=== PATIENT | male | born 1960 | race African-American/Black ===

== ENCOUNTER 2017-05-23 12:56 | Inpatient (IN) | payer SELFPAY ==
[2017-05-23 13:58] LABS: Hemoglobin 16.4 g/dL (14.0-18.0); Mean Corpuscular HGB CONC 32.5 g/dL (32.0-36.0); Mean Corpuscular Hemoglobin 30.8 pg (27.0-31.0); Mean Corpuscular Volume 94.9 fl (80.0-94.0); Mean Platelet Volume 8.3 fL (7.4-10.4); Platelet Count 72 thou/uL (130-400); Red Blood Cell (RBC) Count 5.34 mill/uL (4.70-6.10)
[2017-05-23 14:10] LABS: Band 14 % (5-11); Lymphocytes 19 % (21-51); MDiff Complete? YES; Monocytes 10 % (0-10); Neutrophil 47 % (42-75); PLT Morphology Comment Appears Decreased; Reactive Lymphocytes 10 % (0-10); Target Cells SLIGHT = 2-5 cells (100X) (0-1/hpf)
--- NOTE | 2017-05-23 14:12 | RAD ---
PORTABLE CHEST: Date: 05-23-17 History: Cough, congestion, abdominal pain. Symptoms have been present for four days. Comparison: 12-05-14 FINDINGS: Cardiac silhouette and pulmonary vasculature are within normal limits. There is interstitial and patc hy airspace opacity at the left lung base worrisome for pneumonitis/pneumonia. Right lung is clear. T here has been no other interval change from the prior exam. IMPRESSION: Airspace opacity at the left lung base which may be related to pneumonitis/pneumonia. Follow up to re solution is recommended. POS: [facility]
[2017-05-23] MEDS ORDERED: Acetaminophen 500 MG TAB ONE (14:14)
[2017-05-23] MEDS ORDERED: Ondansetron PF 4 MG/2 ML Vial ONE (14:14)
[2017-05-23 14:16] LABS: ALT (SGPT) 105 U/L (8-55); AST (SGOT) 52 U/L (5-34); Alkaline Phosphatase 95 U/L (40-150); Anion Gap 12 mmol/L (10-20); BUN (Urea Nitrogen) 11 mg/dL (8.4-25.7); Bilirubin, Total 0.3 mg/dL (0.2-1.2); Calc. Creatinine Clearance 0 mL/min (70-130); Calcium 9.5 mg/dL (7.8-10.44); Carbon Dioxide 24 mmol/L (22-29); Chloride 97 mmol/L (98-107); Estimated GFR-MDRD Greater than 90; Globulin 3.9 g/dL (2.4-3.5); Glucose 125 mg/dL (70-105); Potassium 3.7 mmol/L (3.5-5.1); Protein, Total 7.9 g/dL (6.0-8.3); Sodium 129 mmol/L (136-145)
[2017-05-23 15:05] LABS: Bilirubin Negative (Negative); Blood, Urine Negative (Negative); Clarity CLEAR (Clear); Glucose, Urine (Dipstick) Negative (Negative); Leukocyte Negative (Negative); Nitrite Negative (Negative); Protein, Urine (Dipstick) 30 mg/dL (Neg-Trace); Specific Gravity, Urine 1.034 (1.002-1.036); Urobilinogen 0.2 mg/dL (0.2-1.0); pH, Urine 5.5 (5.0-9.0)
[2017-05-23 15:06] LABS: Bacteria/HPF None Seen HPF (None Seen); Pathc Cast-AUWi Flag 0.94 (0-2.49); RBC/HPF 0-3 HPF (0-3); Squamous Epithelial 0-3 HPF (0-3); WBC/HPF 0-3 HPF (0-3)
[2017-05-23 15:15] LABS: Hyaline Casts/LPF 0-3 HYALINE CAST LPF (0-3 Hyaline); Renal Epithelial None Seen HPF (0-3); Transitional Epithelial NONE SEEN HPF (0-3)
[2017-05-23 15:34] LABS: Vacuoles SLIGHT
[2017-05-23] MEDS ORDERED: Oseltamivir 75 MG CAP PO SCH (15:45)
[2017-05-23 16:10] LABS: HIV (1/2) Antibody/Antigen Non-Reactive (NonReactive); HIV 1/2 INDEX 0.28 S/CO (<1.00)
[2017-05-23] MEDS ORDERED: Cefepime 2 GM/10 ML SYR ONE (16:30)
[2017-05-23] MEDS ORDERED: Ibuprofen 200 MG TAB PO PRN (17:40)
[2017-05-23] MEDS ORDERED: traMADol HCl 50 MG TAB PO PRN (17:40)
[2017-05-23] MEDS ORDERED: Ondansetron PF 4 MG/2 ML Vial IVP PRN (17:40)
[2017-05-23] MEDS ORDERED: Ondansetron ODT 4 MG TAB PO PRN (17:40)
[2017-05-23] MEDS ORDERED: Cepastat Lozenges 1 LOZ PO PRN (17:40)
[2017-05-23] MEDS ORDERED: Senokot 8.6 MG TAB PO PRN (17:40)
[2017-05-23] MEDS ORDERED: Mag-Al 1200 mg/1200 mg/30 ML UDCUP PO PRN (17:40)
[2017-05-23 17:47] VITALS: BMI 20.8
[2017-05-23] MEDS ORDERED: Levofloxacin 500 mg/D5W 750 MG in Premix Bag 1 BAG IVPB SCH (18:00)
--- NOTE | 2017-05-23 18:03 | HP ---
DATE OF ADMISSION: 05/23/2017 PRIMARY CARE PHYSICIAN: [facility]. CHIEF COMPLAINT: Flu-like symptoms of 3 days' duration. HISTORY OF PRESENT ILLNESS: The patient is a 57-year-old male with chronic hepatiti s B, presented to the emergency room with above complaints. Over the past 3-4 days, the patient developed gradual worsening fever along with generalized malaise and body aches. He was coughing up thick whitish phlegm. His mother was recently diagnosed with inf luenza. He also had nausea along with diarrhea several times a day. He has been taking Tylenol inte rmittently for fever. No recent travel or other sick contacts reported. He denies any chest pain, p alpitations, lightheadedness, syncope, or focal neurologic deficits. In the emergency room, initial vital signs showed temperature 102.6, respiration of 16, pulse rate of 121 with a blood pressure 122/84 with O2 saturation 98% on room air. His chest x-ray was consistent with left lung basilar pneumonia. He received cefepime, vancomycin, and Tamiflu in the emergency ro om. Influenza testing was negative. PAST MEDICAL HISTORY: Chronic hepatitis B. PAST SURGICAL HISTORY: Reviewed with the patient and none. ALLERGIES: PENICILLIN G. CURRENT HOME MEDICATIONS: Reviewed with the patient and none. SOCIAL HISTORY: He is a former smoker. Drinks alcohol every week. He chews tobacco. FAMILY HISTORY: Negative for heart disease or malignancy. REVIEW OF SYSTEMS: The following complete review of systems was negative, unless otherwise mentioned in the HPI or below: Constitutional: Weight loss or gain, ability to conduct usual activities. Skin: Rash, itching. Eyes: Double vision, pain. ENT/Mouth: Nose bleeding, neck stiffness, pain, tenderness. Cardiovascular: Palpitations, dyspnea on exertion, orthopnea. Respiratory: Shortness of breath, wheezing, cough, hemoptysis, fever or night sweats. Gastrointestinal: Poor appetite, abdominal pain, heartburn, nausea, vomiting, constipation, or diarrhea. Genitourinary: Urgency, frequency, dysuria, nocturia. Musculoskeletal: Pain, swelling. Neurologic/Psychiatric: Anxiety, depression. Allergy/Immunologic: Skin rash, bleeding tendency. PHYSICAL EXAMINATION: VITAL SIGNS: As discussed above. GENERAL: A 57-year-old male, ill-appearing. HEENT: Head atraumatic, normocephalic. Sclerae are anicteric. Moist mucous membranes. No oral les ion. NECK: Supple. No JVD appreciated. No carotid bruit. LUNGS: Showed scattered rales at left base with rhonchi. No wheezing appreciated. Trachea was in m idline. HEART: S1, S2 present. Regular, tachycardic. ABDOMEN: Soft, nontender, bowel sounds present. EXTREMITIES: No edema or calf tenderness. NEUROLOGIC: Grossly nonfocal, moves all four extremities. PSYCHIATRY: Alert, awake, oriented x3. SKIN: Warm and dry. LYMPH NODES: No palpable lymph nodes in the neck. PERIPHERAL VASCULAR: Radial pulses palpable bilaterally. MUSCULOSKELETAL: No joint swelling or tenderness. LABORATORY AND X-RAY FINDINGS: WBC 3.0 with 14% bandemia. Sodium was 129 with normal potassium and bicarbonate. AST was 52, ALT 105. Lipase was normal. Urinalysis was negative. HIV testing was neg ative. Chest x-ray by my review as discussed above. Telemetry monitoring by my review showed sinus tachycardia. IMPRESSION: 1. Sepsis due to pneumonia, suspected pneumococcal. Rule out influenza. 2. Hyponatremia, probably secondary to dehydration. 3. Abnormal liver function tests secondary to chronic hepatitis B. 4. Leukopenia, probably secondary to liver disease. 5. Chronic thrombocytopenia, probably secondary to liver disease. PLAN: The patient will be monitored on the medical floor. We will continue empiric antibiotics. We will hold steroids for now. IV fluids. We will monitor labs on a daily basis. Alcohol cessation w as emphasized. He was also advised to quit chewing tobacco. Control fever with ibuprofen and Tyleno l p.r.n. Plan of care was discussed with the patient in detail. He stated understanding. The patient will require 2-3 days for stabilization. We will also get a respiratory viral panel.
[2017-05-23] MEDS: Sodium Chloride 0.9% 1,000 ML IV SCH (18:41)
[2017-05-23] MEDS: Acetaminophen 325 MG TAB PO PRN (18:41)
[2017-05-23] MEDS ORDERED: Cefepime 2 GM in Sodium Chloride 0.9% 100 ML IVPB SCH (21:00)
[2017-05-23] MEDS ORDERED: Doxycycline 100 MG CAP PO SCH (21:00)
[2017-05-23] MEDS: Docusate 100 MG CAP PO SCH (21:25)
[2017-05-23] MEDS: Oseltamivir 75 MG CAP PO SCH (21:28)
[2017-05-23] MEDS: Famotidine 20 MG TAB PO SCH (21:28)
[2017-05-23] MEDS: guaiFENesin ER 600 MG TAB PO SCH (21:28)
[2017-05-24] MEDS: Sodium Chloride 0.9% 1,000 ML IV SCH ×4 (02:07→19:00)
[2017-05-24] MEDS ORDERED: Cefepime 2 GM, Syringe 2.5 ML in Sterile Water 10 ML SLOW IVP SCH (04:00)
[2017-05-24] MEDS: Calcium Carbonate 500 MG ChewTAB PO PRN ×2 (05:28→23:53)
[2017-05-24 05:29] LABS: Hemoglobin 13.7 g/dL (14.0-18.0); MDiff Complete? YES; Mean Corpuscular Hemoglobin 31.8 pg (27.0-31.0); Mean Corpuscular Volume 96.3 fl (80.0-94.0); Mean Platelet Volume 7.9 fL (7.4-10.4); Platelet Count 52 thou/uL (130-400); RBC Distribution Width 12.9 % (11.5-14.5); White Blood Cell (WBC) Count 2.9 thou/uL (4.8-10.8)
[2017-05-24 05:30] LABS: Band 3 % (5-11); Lymphocytes 37 % (21-51); Metamyelocyte 1 % (0-0); Monocytes 18 % (0-10); Neutrophil 41 % (42-75); PLT Morphology Comment Appears Decreased
[2017-05-24 06:02] LABS: ALT (SGPT) 71 U/L (8-55); AST (SGOT) 37 U/L (5-34); Alkaline Phosphatase 70 U/L (40-150); Anion Gap 9 mmol/L (10-20); BUN (Urea Nitrogen) 9 mg/dL (8.4-25.7); Bilirubin, Total 0.3 mg/dL (0.2-1.2); Calc. Creatinine Clearance 111 mL/min (70-130); Calcium 8.1 mg/dL (7.8-10.44); Carbon Dioxide 23 mmol/L (22-29); Chloride 104 mmol/L (98-107); Estimated GFR-MDRD Greater than 90; Globulin 2.7 g/dL (2.4-3.5); Glucose 107 mg/dL (70-105); Magnesium 1.6 mg/dL (1.6-2.6); Phosphorus 2.2 mg/dL (2.3-4.7); Protein, Total 5.7 g/dL (6.0-8.3); Sodium 132 mmol/L (136-145)
[2017-05-24] MEDS: Famotidine 20 MG TAB PO SCH ×2 (08:49→20:54)
[2017-05-24] MEDS: guaiFENesin ER 600 MG TAB PO SCH ×2 (08:49→20:54)
[2017-05-24] MEDS: Oseltamivir 75 MG CAP PO SCH ×2 (08:49→20:55)
[2017-05-24] MEDS: Docusate 100 MG CAP PO SCH ×2 (08:50→20:53)
[2017-05-24] MEDS: K-Phos Neutral 250 MG TAB PO SCH ×4 (08:57→20:54)
[2017-05-24] MEDS ORDERED: Saccharomyces boulardii 250 MG CAP PO SCH (09:00)
[2017-05-24] MEDS ORDERED: Azithromycin 250 MG TAB PO SCH (11:45)
[2017-05-24] MEDS: Acetaminophen 325 MG TAB PO PRN (17:04)
--- NOTE | 2017-05-24 22:19 | PDOC.PN ---
- Subjective Encounter Start Date: 05/24/17 Encounter Start Time: 14:00 Patient seen and examined. No new complaints. No overnight events - Objective Resuscitation Status: Resuscitation Status FULL:Full Resuscitation MAR Reviewed: Yes Vital Signs & Weight: Vital Signs (12 hours) Temp Pulse Resp BP Pulse Ox 05/24/17 20:48 99.7 F H 89 18 96 05/24/17 20:00 99.7 F H 89 18 122/60 96 05/24/17 19:16 85 12 95 05/24/17 16:00 101.3 F H 89 20 115/63 97 05/24/17 15:21 102 H 16 95 05/24/17 12:00 99.0 F 101 H 20 137/82 96 05/24/17 10:26 95 14 95 Weight Admit Weight 157 lb 12.8 oz Weight 157 lb 12.8 oz I&O: 05/23/17 05/24/17 05/25/17 06:59 06:59 06:59 Intake Total 2039 1725 Balance 2039 1725 Result Diagrams: 05/24/17 04:31 05/24/17 04:31 Phys Exam - Physical Examination Constitutional: NAD Respiratory: no wheezing, no rhonchi Cardiovascular: RRR, no rub Bibasilar rales Gastrointestinal: soft, non-tender, positive bowel sounds Musculoskeletal: no edema Neurological: moves all 4 limbs Psychiatric: A&O x 3 Dx/Plan - Plan DVT proph w/SCDs IMPRESSION: 1. Sepsis due to pneumonia, suspected pneumococcal with InfluenzaB 2. Hyponatremia, probably secondary to dehydration. 3. Abnormal liver function tests secondary to chronic hepatitis B. 4. Leukopenia, probably secondary to liver disease. 5. Chronic thrombocytopenia, probably secondary to liver disease. PLAN: * Cont Tamiflu * Reduce IVF * Change Atbx to Azithromycin * Cont to monitor * DC in AM if stable Review of Systems - Review of Systems Cardiovascular: negative: chest pain, palpitations, orthopnea, paroxysmal nocturnal dyspnea, edema, light headedness Gastrointestinal: negative: Nausea, Vomiting, Abdominal Pain, Diarrhea, Constipation, Melena, Hematochezia - Medications/Allergies Allergies/Adverse Reactions: Allergies Allergy/AdvReac Type Severity Reaction Status Date / Time penicillin G Allergy Intermediate Hives Verified 05/23/17 21:33 Medications: Current Medications Acetaminophen (Tylenol) 325 mg PO Q6H PRN PRN Reason: Headache/Fever or Pain Last Admin: 05/24/17 17:04 Dose: 325 mg Al Hydroxide/Mg Hydroxide (Maalox) 30 ml PO Q6H PRN PRN Reason: Heartburn or Indigestion Albuterol/Ipratropium (Duoneb) 3 ml NEB [id number] [facility] Last Admin: 05/24/17 19:16 Dose: 3 ml Albuterol/Ipratropium (Duoneb) 3 ml NEB [id number] PRN PRN Reason: SOB &/or Wheezing Azithromycin (Zithromax) 250 mg PO DAILY [facility] Stop: 05/28/17 09:01 Calcium Carbonate (Tums) 1,000 mg PO Q4H PRN PRN Reason: Heartburn or Indigestion Last Admin: 05/24/17 05:28 Dose: 1,000 mg Docusate Sodium (Colace) 100 mg PO BID [facility] Last Admin: 05/24/17 20:53 Dose: Not Given Famotidine (Pepcid) 20 mg PO BID [facility] Last Admin: 05/24/17 20:54 Dose: 20 mg Guaifenesin (Mucinex) 600 mg PO Q12HR [facility] Last Admin: 05/24/17 20:54 Dose: 600 mg Sodium Chloride (Normal Saline 0.9%) 1,000 mls @ 70 mls/hr IV .[id number] [facility] Last Admin: 05/24/17 13:01 Dose: Not Given Ibuprofen (Motrin) 400 mg PO Q6H PRN PRN Reason: Fever > 101 Miscellaneous Medication (Pharmacy To Dose) 1 each IVPB ONE PRN PRN Reason: Pharmacy to dose Stop: 06/22/17 17:41 Ondansetron HCl (Zofran Odt) 4 mg PO Q6H PRN PRN Reason: Nausea/Vomiting Ondansetron HCl (Zofran) 4 mg IVP Q6H PRN PRN Reason: Nausea/Vomiting Last Admin: 05/24/17 02:05 Dose: 4 mg Oseltamivir Phosphate (Tamiflu) 75 mg PO BID [facility] Stop: 05/28/17 09:01 Last Admin: 05/24/17 20:55 Dose: 75 mg Phosphorus (Kphos Neutral) 500 mg PO QID-[facility] Last Admin: 05/24/17 20:54 Dose: 500 mg Senna (Senokot) 2 tab PO HSPRN PRN PRN Reason: Constipation Throat Lozenges (Cepastat Lozenges) 1 marissa PO Q2H PRN PRN Reason: Sore Throat Tramadol HCl (Ultram) 50 mg PO Q6H PRN PRN Reason: Moderate Pain (4-6) Last Admin: 05/24/17 05:28 Dose: 50 mg
[2017-05-25] MEDS: K-Phos Neutral 250 MG TAB PO SCH ×2 (08:03→12:19)
[2017-05-25] MEDS: Famotidine 20 MG TAB PO SCH (08:03)
[2017-05-25] MEDS: Oseltamivir 75 MG CAP PO SCH (08:03)
[2017-05-25] MEDS: guaiFENesin ER 600 MG TAB PO SCH (08:03)
[2017-05-25] MEDS: Docusate 100 MG CAP PO SCH (08:04)
[2017-05-25 08:27] VITALS: BP 107/60
[2017-05-25] MEDS ORDERED: Azithromycin 250 MG TAB PO SCH (09:00)
[2017-05-25] MEDS: Acetaminophen 325 MG TAB PO PRN (12:01)
[2017-05-25 12:11] VITALS: TEMP 100.3
--- NOTE | 2017-05-25 19:07 | DIS ---
DATE OF DISCHARGE: 05/25/2017 Patient signed against medical advice. BRIEF HOSPITAL COURSE: Patient is a 57-year-old male with chronic hepatitis B, presented to the hosp ital with flu-like symptoms of 3 days duration. The patient's mother recently was diagnosed with inf luenza. Please refer to the history and physical dated 05/23/2017 for further details. The patient was admitted to the hospital with a diagnosis of sepsis secondary to pneumonia along with influenza B infection. He was started on broad spectrum antibiotics along with Tamiflu. Yesterday, the patient spiked a temperature of 101.3. This afternoon, his temperature was 100.3. He was advis ed to continue antibiotics for another 24 hours. Patient, however, signed against medical advice. A prescription for Levaquin and Tamiflu was sent to the pharmacy. FINAL DIAGNOSES: 1. Sepsis secondary to pneumonia and acute influenza B infection. 2. Hyponatremia. 3. Hypophosphatemia. 4. Abnormal liver function tests, probably secondary to chronic hepatitis B. 5. Leukopenia, probably secondary to liver disease. 6. Chronic thrombocytopenia. Plan of care was discussed with the patient and the son over the phone. They stated understanding.
== END 2017-05-25 13:52 | disposition home or self-care (01) | DRG 871 ==
LOC: ERS 12:56 → T4-B 17:36
PROVIDERS: ADMIT Internal Medicine; ATTEND Internal Medicine
DX: A41.9 Sepsis, unspecified organism (principal); J10.08 Influenza due to other identified influenza virus with other specified pneumonia; B18.1 Chronic viral hepatitis B without delta-agent; E87.1 Hypo-osmolality and hyponatremia; E86.0 Dehydration; K76.9 Liver disease, unspecified; D47.3 Essential (hemorrhagic) thrombocythemia
CPT/HCPCS: 36415; 71045; 80053; 81003; 81015; 83605; 83690; 83735; 84100; 85025; 87040; 87086; 87389; 87633; 87798; 87804; 94640; 96361; 96365; 96375; A4216; J0692; J1956; J2405; J3370; J7620

== ENCOUNTER 2021-10-22 19:20 | Emergency (ER) | payer SELFPAY ==
[2021-10-22 19:53] LABS: #Monocytes 0.6 thou/uL (0.11-0.59); #Neutrophils 2.3 thou/uL (1.40-6.50); %Basophils 0.3 % (0.0-1.0); %Eosinophils 0.2 % (0.0-10.0); %Lymphocytes 39.8 % (21.0-51.0); %Monocytes 12.3 % (0.0-10.0); %Neutrophils 47.3 % (42.0-75.0); Hemoglobin 18.2 g/dL (14.0-18.0); Mean Corpuscular HGB CONC 32.5 g/dL (32.0-36.0); Mean Corpuscular Hemoglobin 31.1 pg (27.0-31.0); Mean Corpuscular Volume 95.6 fL (78.0-98.0); Mean Platelet Volume 9.1 fL (7.4-10.4); Platelet Count 54 thou/uL (130-400); RBC Distribution Width 13.1 % (11.5-14.5); Red Blood Cell (RBC) Count 5.87 mill/uL (4.70-6.10); White Blood Cell (WBC) Count 4.9 thou/uL (4.8-10.8)
[2021-10-22 20:09] LABS: ALT (SGPT) 46 U/L (8-55); AST (SGOT) 38 U/L (5-34); Albumin 3.9 g/dL (3.5-5.0); Alkaline Phosphatase 93 U/L (40-110); Anion Gap 18 mmol/L (10-20); BUN (Urea Nitrogen) 19 mg/dL (8.4-25.7); Bilirubin, Total 0.8 mg/dL (0.2-1.2); Calc. Creatinine Clearance 0 mL/min (70-130); Calcium 9.6 mg/dL (7.8-10.44); Carbon Dioxide 25 mmol/L (22-29); Chloride 97 mmol/L (98-107); Estimated GFR 97; Globulin 4.5 g/dL (2.4-3.5); Glucose 115 mg/dL (70-105); Potassium 3.7 mmol/L (3.5-5.1); Protein, Total 8.4 g/dL (6.0-8.3); Sodium 136 mmol/L (136-145)
[2021-10-22] MEDS ORDERED: Ondansetron PF 4 MG/2 ML Vial ONE (21:25)
[2021-10-22 22:42] LABS: Anion Gap 15 mmol/L (10-20); BUN (Urea Nitrogen) 19 mg/dL (8.4-25.7); Calc. Creatinine Clearance 0 mL/min (70-130); Calcium 8.7 mg/dL (7.8-10.44); Carbon Dioxide 24 mmol/L (22-29); Chloride 100 mmol/L (98-107); Estimated GFR 100; Glucose 98 mg/dL (70-105); Potassium 3.8 mmol/L (3.5-5.1); Sodium 135 mmol/L (136-145)
[2021-10-22 22:51] LABS: Hemoglobin 16.1 g/dL (14.0-18.0); MDiff Complete? YES; Mean Corpuscular Hemoglobin 31.2 pg (27.0-31.0); Mean Corpuscular Volume 97.4 fL (78.0-98.0); Mean Platelet Volume 10.6 fL (7.4-10.4); Platelet Count 42 thou/uL (130-400); RBC Distribution Width 13.2 % (11.5-14.5); Red Blood Cell (RBC) Count 5.17 mill/uL (4.70-6.10); White Blood Cell (WBC) Count 4.3 thou/uL (4.8-10.8)
[2021-10-22 22:52] LABS: Band 5 % (5-11); Lymphocytes 42 % (21-51); Monocytes 5 % (0-10); Neutrophil 48 % (42-75); Platelet Morphology Comment Appears Decreased
[2021-10-23 00:12] LABS: Lactic Acid 2.2 mmol/L (0.5-2.2)
== END 2021-10-22 23:59 | disposition home or self-care (01) ==
LOC: ERS 19:20
DX: E86.0 Dehydration (principal); R11.2 Nausea with vomiting, unspecified; F17.220 Nicotine dependence, chewing tobacco, uncomplicated
CPT/HCPCS: 36415; 80053; 83605; 85025; 96361; 96374; J2405